=== PATIENT | female | born 1990 | race African-American/Black ===

== ENCOUNTER 2021-03-26 05:04 | Emergency (ER) | payer MEDICAID ==
[~2021-03-26] VITALS: Ht 167.6 cm; Wt 73.0 kg
[2021-03-26 05:14] VITALS: BP 147/97
== END 2021-03-26 06:49 | disposition left against medical advice (07) ==
LOC: ER 05:04
DX: Z53.21 Procedure and treatment not carried out due to patient leaving prior to being seen by health care provider (principal)
CPT/HCPCS: 93005

== ENCOUNTER 2021-03-26 18:33 | Emergency (ER) | payer MEDICAID ==
[~2021-03-26] VITALS: Ht 167.6 cm; Wt 70.0 kg
[2021-03-26 18:37] VITALS: BP 134/91
[2021-03-27] MEDS ORDERED: MIDAZOLAM HCL 2 MG/2 ML VIAL ONE (11:45)
== END 2021-03-26 23:15 | disposition left against medical advice (07) ==
LOC: ER 18:33
DX: Z53.21 Procedure and treatment not carried out due to patient leaving prior to being seen by health care provider (principal)

== ENCOUNTER 2022-06-21 21:40 | Emergency (ER) | payer MEDICAID ==
[~2022-06-21] VITALS: Ht 160 cm; Wt 58.0 kg
[2022-06-21 22:03] VITALS: BP 119/74
[2022-06-21] MEDS ORDERED: IBUP-2029 MT (22:42)
== END 2022-06-21 22:50 | disposition home or self-care (01) ==
LOC: ER 21:40
DX: G89.29 Other chronic pain (principal); Z98.890 Other specified postprocedural states
CPT/HCPCS: 99282

== ENCOUNTER 2022-09-08 05:28 | Emergency (ER) | payer MEDICAID ==
[~2022-09-08] VITALS: Ht 165.1 cm; Wt 59.8 kg
[~2022-09-08 05:28] MED LIST: IBUP-2029 MT
[2022-09-08 05:38] VITALS: BP 126/83
== END 2022-09-08 07:00 | disposition left against medical advice (07) ==
LOC: ER 05:28
DX: Z53.21 Procedure and treatment not carried out due to patient leaving prior to being seen by health care provider (principal)

== ENCOUNTER 2023-01-30 01:48 | Emergency (ER) | payer MEDICAID ==
[~2023-01-30] VITALS: Ht 175.3 cm; Wt 68.0 kg
[2023-01-30 01:58] VITALS: O2SAT 99
[2023-01-30] MEDS ORDERED: ACETAMINOPHEN 325MG TABLET PO ONE (02:45)
[2023-01-30] MEDS ORDERED: KETOROLAC 15MG/ML VIAL IM ONE (03:00)
[2023-01-30 03:30] VITALS: TEMP 97.8
[2023-01-30 03:31] VITALS: BP 133/92; PULSE 83; RESP 18
== END 2023-01-30 03:40 | disposition home or self-care (01) ==
LOC: ER 01:48
DX: G89.29 Other chronic pain (principal)
CPT/HCPCS: 99283; 81025; 96372; J1885

== ENCOUNTER 2023-01-30 04:33 | Emergency (ER) | payer MEDICAID ==
[~2023-01-30] VITALS: Ht 162.6 cm; Wt 53.5 kg
[2023-01-30 04:46] VITALS: BP 114/82; PULSE 90; TEMP 98.1; O2SAT 100
== END 2023-01-30 06:12 | disposition home or self-care (01) ==
LOC: ER 04:33
DX: Z13.9 Encounter for screening, unspecified (principal)
CPT/HCPCS: 99281